=== PATIENT | male | born 1985 | race Native Hawaiian/Other Pacific Islander ===

== ENCOUNTER 2017-04-03 08:05 | Outpatient (CLI) | payer BC | END 2017-04-03 19:34 | disposition home or self-care (01) | LOC: CT 08:05 | DX: K42.9 Umbilical hernia without obstruction or gangrene (principal) | CPT/HCPCS: Q9963 ==

== ENCOUNTER 2020-01-13 16:32 | Outpatient (CLI) | payer OTHER ==
[2020-01-13 17:05] LABS: PLATELET COUNT 359 K/uL (142-355)
[2020-01-13 17:33] LABS: POTASSIUM 3.8 mmol/L (3.6-5.2)
== END 2020-01-13 22:21 | disposition home or self-care (01) ==
LOC: LABW 16:32
PROVIDERS: ATTEND Nurse Practitioner
DX: E34.9 Endocrine disorder, unspecified (principal); E29.1 Testicular hypofunction; R53.83 Other fatigue; Z12.5 Encounter for screening for malignant neoplasm of prostate; E03.9 Hypothyroidism, unspecified; F41.8 Other specified anxiety disorders; E55.9 Vitamin D deficiency, unspecified; D51.9 Vitamin B12 deficiency anemia, unspecified; R68.82 Decreased libido
CPT/HCPCS: 36415; 80053; 80061; 82306; 82607; 82670; 82728; 83036; 83540; 83550; 83735; 84270; 84403; 84443; 84481; 85027